=== PATIENT | male | born 1980 | race Caucasian/White ===

== ENCOUNTER 2020-10-01 14:09 | Emergency (ER) | payer OTHER, SELFPAY ==
[2020-10-01 14:16] VITALS: BP 141/105; PULSE 124; RESP 16; TEMP 35.8; O2SAT 100
--- NOTE | 2020-10-01 14:16 | ED.GENADULT ---
HPI - General Adult General Chief complaint: Nausea/Vomiting/Diarrhea Stated complaint: FEVER/CHILLS/TIRED/ABD PAIN/CHILLS Time Seen by Provider: 10/01/20 14:12 Source: patient Mode of arrival: ambulatory Limitations: no limitations History of Present Illness HPI narrative: 39 y/o male. PMH includes: MDD. Presents to [facility] today with acute complaints of fever at home, generalized body aches and fatigue, abdominal pain, N/V and feels like crap for the past 72 hours. He tells me that he has spent the last 48 hours in bed vomiting and unable to eat, but did keep a little bit down today . No cough, congestion, chest pain. He reports decreased urination and low back pain. No penile discharge, hematuria. No known ill contacts. He has not yet been Covid 19 vaccinated. He is without additional acute complaints of illness upon exam. Related Data Allergies Allergy/AdvReac Type Severity Reaction Status Date / Time No Known Allergies Allergy Unverified 09/12/20 13:11 Review of Systems Review of Systems: Narrative: CONSTITUTIONAL: Positive fever, chills, sweats, body aches. EYES: Denies visual changes, redness, discharge. ENT: Denies rhinorrhea, congestion, sore throat, otalgia. CARDIOVASCULAR: Denies chest pain, palpitations, edema. RESPIRATORY: Denies dyspnea, wheezing, cough GASTROINTESTINAL: Positive abdominal pain, nausea, vomiting. No diarrhea. GENITOURINARY: Decreased output, flank pain. No dysuria, hematuria, abnormal discharge SKIN: Denies rash or itching. MUSCULOSKELETAL: Denies acute back pain, joint pain, or myalgia. NEUROLOGIC: Denies numbness, or focal weakness. PSYCHIATRIC: Denies anxiety or depression. All systems reviewed & are unremarkable except as noted in HPI and below PMFSH Past Medical History Medical History (Updated 10/01/20 @ 14:38 by STEPHAN Ponce) Allergies Surgical History Surgical History H/O vasectomy Family History Family History Mother Diabetes mellitus Depression Anxiety Grandparent Carcinoma of colon Diabetes mellitus Social History Social History (Updated 06/11/21 @ 13:04 by Ania Lloyd [facility]) Smoking packs per day: 10 Smoking cigarettes per day: 200.0 Years smoked: 6 Smoking pack-years: 60.00 Smoking status: Former smoker Tobacco type: cigarettes Alcohol intake: current Drinks per week: 7 Substance use: current Substance use type: marijuana Exam Narrative: Exam Narrative: GENERAL: Appears ill, toxic. HEAD: normocephalic, atraumatic. EYES: PERRL. EARS: External ears normal. NOSE: External nose normal. rhinorrhea. THROAT: Mucous membranes moist, posterior pharynx erythematous, without exudate. NECK: Neck supple, non-tender without lymphadenopathy, masses or thyromegaly. CARDIOVASCULAR: Noted tachycardia, no murmurs, gallops, or rubs. RESPIRATORY: Clear to auscultation. Breath sounds equal bilaterally. GASTROINTESTINAL: Abdomen soft, non-distended. With LLQ pain and guarding on exam. No palpable masses. SKIN: Diaphoretic, decreased turgor. NEURO: No obvious focal neurologic abnormalities. Medical Decision Making MDM Narrative Medical decision making narrative: -Tachycardic, subjective fevers, diaphoretic, and ill appearing on exam. -Remains Normotensive. -Abdominal pain, reports of flank/low back pain, N/V, decreased PO intake and urinary output > 48 hours. -LLQ tenderness on abdominal exam. -Rapid Covid 19 testing is negative. -Additional DDX may include, but are not limited to, Colitis, Diverticulitis, Appendicitis, Pyelonephritis, Stone burden, Septicemia, Cardiac event, or other. -Considering, client has been asked to be re-directed to [facility] for higher level of medical resources and evaluation, or any ER of client's choice. However, he refuses. -Differing potential diagnoses, ratio
== END 2020-10-01 14:59 | disposition left against medical advice (07) ==
PROVIDERS: Emergency Provider Nurse Practitioner Adult Health; PCP Family Medicine
DX: R00.0 Tachycardia, unspecified (principal); R50.9 Fever, unspecified; M54.5 Low back pain; R10.32 Left lower quadrant pain; R11.2 Nausea with vomiting, unspecified; Z20.822 Contact with and (suspected) exposure to COVID-19; Z87.891 Personal history of nicotine dependence; Z98.52 Vasectomy status
CPT/HCPCS: 87426; 99213; C9803; G0463